=== PATIENT | male | born 1995 | race Caucasian/White ===

== ENCOUNTER 2018-09-15 19:04 | Emergency (ER) | payer OTHER ==
[~2018-09-15] VITALS: Ht 175.3 cm; Wt 63.5 kg
[2018-09-15] MEDS ORDERED: PROTONIX40 MG PO (23:38)
[2018-09-15] MEDS ORDERED: TIGAN300 MG PO (23:39)
[2018-09-15] MEDS ORDERED: IMODIUM A-D2 M2 PO (23:43)
== END 2018-09-16 02:20 | disposition home or self-care (01) ==
LOC: ER 19:04
DX: K52.9 Noninfective gastroenteritis and colitis, unspecified (principal)

== ENCOUNTER 2021-05-07 08:00 | Outpatient (CLI) | payer OTHER ==
[~2021-05-07 08:00] MED LIST: IMODIUM A-D2 M2 PO; PROTONIX40 MG PO; TIGAN300 MG PO
== END 2021-05-07 08:30 | disposition home or self-care (01) ==
LOC: PPH VACUNA 08:00
PROVIDERS: ATTEND Emergency Medicine Pediatric Emergency Medicine
DX: Z23 Encounter for immunization (principal)